=== PATIENT | female | born 1960 | race Caucasian/White ===

== ENCOUNTER 2016-12-28 11:33 | Observation (INO) | payer OTHER ==
[~2016-12-28] VITALS: Ht 172.7 cm; Wt 65.0 kg
[~2016-12-28 11:33] MED LIST: CIPR-9 PO; METH5TAB4 PO; METR-1 PO
[2016-12-28 11:37] VITALS: BP 142/93; PULSE 124; RESP 24; TEMP 98; O2SAT 99
--- NOTE | 2016-12-28 11:38 | PD ---
Physical Exam Date Seen by Provider: Dec 28, 2016 Time Seen by Provider: 11:37 Narrative 56 yo male here for irregular heart beat. Recent diagnosis of Graves disease. Has had it since and taking beta gabriella but since yesterday feeling that is irregular. Compliant. No other medical issues. No pain. Vitals are stable in triage. Awaiting bed placement. [facility] Medical Record Reviewed: Yes Supervised Visit with KELTON: Zach Clark Dec 28, 2016 11:38
--- NOTE | 2016-12-28 11:44 | PD ---
HPI . heart palpitations for 2 mts, worse now Chief Complaint: Cardiac Complaint Time Seen by Provider: 11:44 Travel History International Travel<30 days: No Contact w/Intl Traveler<30days: No Traveled to known affect area: No History of Present Illness HPI 56-year-old female with history of Graves' disease that had been controlled for 6 years and being followed by her primary care provider Dr. Vincent and tree driller Dr. Neal here with complaints of rapid heart rate. Patient says that she has been having a rapid heart rate intermittently for the past 2 months, and has had medication adjustments with her methimazole and metoprolol. She says despite taking her medications she continues to have an erratic and rapid heart rate. She was told by her tree driller, to the emergency department for evaluation of possible atrial fibrillation. Patient admits to some chest pressure and some shortness of breath. She denies any nausea, vomiting or diaphoresis. She has no other complaints. PFSH Past Medical History Autoimmune Disease: Yes (GRAVES DISEASE) Cancer: No Cardiovascular Problems: Yes (IRREGULAR HEARTBEAT) Diminished Hearing: No Diverticulitis: Yes Gastrointestinal Disorders: Yes (Diverticulosis, Diverticulitis) GERD: No Genitourinary: No Hiatal Hernia: No Musculoskeletal: No Neurologic: No Psychiatric: No Reproductive: No Respiratory: No Immunizations Current: No Thyroid Disease: Yes Ulcer: No Menopausal: Yes : 4 Para: 4 Miscarriage: 0 : 0 Social History Alcohol Use: No Tobacco Use: No Substance Use: No Allergies-Medications (Allergen,Severity, Reaction): Coded Allergies: No Known Allergies (Verified , 10/01/15) Reported Meds & Prescriptions Reported Meds & Active Scripts Active Reported Metoprolol Tartrate 25 Mg Tab 25 Mg PO BID Methimazole 5 Mg Tab 15 Mg PO DAILY Review of Systems General / Constitutional: No: Fever Eyes: No: Visual changes HENT: No: Headaches Cardiovascular: Positive: Palpitations, Irregular Rhythm, No: Chest Pain or Discomfort Respiratory: Positive: Shortness of Breath (intermittent) Gastrointestinal: No: Abdominal Pain Genitourinary: No: Dysuria Musculoskeletal: No: Pain Skin: No Rash Neurologic: No: Weakness Psychiatric: No: Depression Endocrine: No: Polydipsia Hematologic/Lymphatic: No: Easy Bruising Physical Exam Narrative GENERAL: AAO x 3, no acute distress, Well-nourished, well-developed patient. SKIN: Warm and dry. No visible rashes or bruising. HEAD: Normocephalic and atraumatic. EYES: No scleral icterus. No injection or drainage. EOM intact, PERRLA ENT: No nasal drainage noted. Mucous membranes pink. Airway patent. NECK: Supple, trachea midline. No JVD. CARDIOVASCULAR: Irregularly irregular on exam, no murmur, rubs or gallop RESPIRATORY: Breath sounds equal bilaterally. No accessory muscle use. No rhonchi or rales. GASTROINTESTINAL: Abdomen soft, non-tender, nondistended. No rebound or guarding EXTREMITIES: No cyanosis or edema. BACK: No obvious deformity. NEURO: CN II-12 intact, real estate processor strength normal b/l, UE and LE 5/5, no focal deficits PSYCH: AAO x 3, normal affect. Data Data Last Documented VS Vital Signs Date Time Temp Pulse Resp B/P Pulse Ox O2 Delivery O2 Flow Rate FiO2 12/28/16 14:53 81 118/66 97 Room Air 12/28/16 14:05 24 12/28/16 11:37 98.0 Orders Electrocardiogram (12/28/16 11:46) Basic Metabolic Panel (Bmp) (12/28/16 11:46) Complete Blood Count With Diff (12/28/16 11:46) Chest, Single Ap (12/28/16 11:46) Ecg Monitoring (12/28/16 11:46) Bilateral Bp Monitoring (12/28/16 11:46) Iv Access Insert/Monitor (12/28/16 11:46) Oximetry (12/28/16 11:46) Thyroid Stimulating Hormone (12/28/16 11:46) Free Thyroxine (T4) (12/28/16 11:46) B-Type Natriuretic Peptide (12/28/16 11:49) Ckmb (Isoenzyme) Profile (12/28/16 11:49) Magnesium (Mg) (12/28/16 11:49) Prothrombin Time / Inr (Pt) (12/28/16 11:49) Act Partial Throm Time (Ptt) (12/28/16 11:49) Troponin I (12/28/16 11:49) Diltiazem Inj (Cardizem Inj) (12/28/16 14:00) Labs Laboratory Tests Test 12/28/16 12:00 White Blood Count 5.5 TH/MM3 Red Blood Count 4.27 MIL/MM3 Hemoglobin 12.3 GM/DL Hematocrit 35.9 % Mean Corpuscular Volume 84.2 FL Mean Corpuscular Hemoglobin 28.8 PG Mean Corpuscular Hemoglobin 34.2 % Concent Red Cell Distribution Width 11.9 % Platelet Count 262 TH/MM3 Mean Platelet Volume 7.4 FL Neutrophils (%) (Auto) 47.9 % Lymphocytes (%) (Auto) 39.5 % Monocytes (%) (Auto) 9.5 % Eosinophils (%) (Auto) 2.1 % Basophils (%) (Auto) 1.0 % Neutrophils # (Auto) 2.6 TH/MM3 Lymphocytes # (Auto) 2.2 TH/MM3 Monocytes # (Auto) 0.5 TH/MM3 Eosinophils # (Auto) 0.1 TH/MM3 Basophils # (Auto) 0.1 TH/MM3 CBC Comment DIFF FINAL Differential Comment Prothrombin Time 10.2 SEC Prothromb Time International 0.9 RATIO Ratio Activated Partial 26.6 SEC Thromboplast Time Sodium Level 142 MEQ/L Potassium Level 3.4 MEQ/L Chloride Level 108 MEQ/L Carbon Dioxide Level 25.5 MEQ/L Anion Gap 9 MEQ/L Blood Urea Nitrogen 14 MG/DL Creatinine 0.60 MG/DL Estimat Glomerular Filtration 104 ML/MIN Rate Random Glucose 129 MG/DL Calcium Level 8.6 MG/DL Magnesium Level 2.0 MG/DL Total Creatine Kinase 78 U/L Troponin I LESS THAN 0.02 NG/ML B-Type Natriuretic Peptide 180 PG/ML Free Thyroxine 2.10 NG/DL Thyroid Stimulating Hormone LESS THAN 3rd Gen 0.005 uIU/ML MDM Medical Decision Making Medical Screen Exam Complete: Yes Emergency Medical Condition: Yes Medical Record Reviewed: Yes Differential Diagnosis newly dx A. fib, hyperthyroidism, Narrative Course 56-year-old female here with complaints of rapid heart rate and shortness of breath. EKG done and it shows new onset A. fib. IV access obtained. Patient placed on continuous cardiac monitoring and pulse oximetry. Labs and imaging have been ordered. Patient given Cardizem here in the ED. Labs have been reviewed and appreciated. Patient still hyperthyroid. BNP slightly elevated at 180, likely related to new onset A. fib. CXR normal. Last Impressions Chest X-Ray 12/28/16 1146 Signed Impressions: Service Date/Time: Wednesday, December 28, 2016 12:01 - CONCLUSION: No acute disease. Casey Jarvis MD Laboratory Tests Test 12/28/16 12:00 White Blood Count 5.5 TH/MM3 Red Blood Count 4.27 MIL/MM3 Hemoglobin 12.3 GM/DL Hematocrit 35.9 % Mean Corpuscular Volume 84.2 FL Mean Corpuscular Hemoglobin 28.8 PG Mean Corpuscular Hemoglobin 34.2 % Concent Red Cell Distribution Width 11.9 % Platelet Count 262 TH/MM3 Mean Platelet Volume 7.4 FL Neutrophils (%) (Auto) 47.9 % Lymphocytes (%) (Auto) 39.5 % Monocytes (%) (Auto) 9.5 % Eosinophils (%) (Auto) 2.1 % Basophils (%) (Auto) 1.0 % Neutrophils # (Auto) 2.6 TH/MM3 Lymphocytes # (Auto) 2.2 TH/MM3 Monocytes # (Auto) 0.5 TH/MM3 Eosinophils # (Auto) 0.1 TH/MM3 Basophils # (Auto) 0.1 TH/MM3 CBC Comment DIFF FINAL Differential Comment Prothrombin Time 10.2 SEC Prothromb Time International 0.9 RATIO Ratio Activated Partial 26.6 SEC Thromboplast Time Sodium Level 142 MEQ/L Potassium Level 3.4 MEQ/L Chloride Level 108 MEQ/L Carbon Dioxide Level 25.5 MEQ/L Anion Gap 9 MEQ/L Blood Urea Nitrogen 14 MG/DL Creatinine 0.60 MG/DL Estimat Glomerular Filtration 104 ML/MIN Rate Random Glucose 129 MG/DL Calcium Level 8.6 MG/DL Magnesium Level 2.0 MG/DL Total Creatine Kinase 78 U/L Troponin I LESS THAN 0.02 NG/ML B-Type Natriuretic Peptide 180 PG/ML Free Thyroxine 2.10 NG/DL Thyroid Stimulating Hormone LESS THAN 3rd Gen 0.005 uIU/ML I discussed all of the findings with the patient. I explained her that she has new onset A. fib. Her rate is slightly elevated and she will need to be admitted for further management and recommendations. Patient was in agreement with recommendations and treatment plan. 1402: I requested a call back from Dr. Saucedo 1508: Discussed with Dr. Saucedo. Patient admitted and he will resume care of this patient. Diagnosis Primary Impression: New onset a-fib Additional Impression: Hyperthyroidism Admitting Information Admitting Physician Requests: Admit Condition: Stable Tita Marshall Dec 28, 2016 11:44
[2016-12-28] MEDS ORDERED: METO25TA3 PO (11:47)
[2016-12-28 12:15] LABS: AUTOMATED NEUTROPHIL # 2.6 TH/MM3 (1.8-7.7); BASOPHIL # 0.1 TH/MM3 (0-0.2); EOSINOPHIL # 0.1 TH/MM3 (0-0.4); EOSINOPHIL % 2.1 % (0.0-4.0); HEMATOCRIT 35.9 % (35.0-46.0); HEMO FLAGS DIFF FINAL; LYMPH % 39.5 % (9.0-44.0); LYMPHOCYTE # 2.2 TH/MM3 (1.0-4.8); MEAN CELL VOLUME 84.2 FL (80.0-100.0); MEAN CORPUSCULAR HEMOGLOBIN 28.8 PG (27.0-34.0); MEAN CORPUSCULAR HGB CONC 34.2 % (32.0-36.0); MONO % 9.5 % (0.0-8.0); NEUT % 47.9 % (16.0-70.0); PLATELET COUNT 262 TH/MM3 (150-450); RED BLOOD COUNT 4.27 MIL/MM3 (4.00-5.30); RED CELL DISTRIBUTION WIDTH 11.9 % (11.6-17.2); WHITE BLOOD COUNT 5.5 TH/MM3 (4.0-11.0)
[2016-12-28 12:17] LABS: APTT (PATIENT) 26.6 SEC (24.3-30.1); INTERNATIONAL NORMALIZED RATIO 0.9 RATIO; PROTHROMBIN TIME - PATIENT 10.2 SEC (9.8-11.6)
--- NOTE | 2016-12-28 12:33 | RADRPT ---
EXAM DATE/TIME: 12/28/2016 12:01 [facility] COMPARISON: CT ABDOMEN & PELVIS W CONTRAST, May 16, 2016, 8:37. INDICATIONS : Patient has had chest pain and states she feels like her heart is racing MEDICAL HISTORY : Diverticulitis. SURGICAL HISTORY : None. ENCOUNTER: Initial ACUITY: 1 day PAIN SCORE: 2/10 LOCATION: Bilateral chest FINDINGS: A single view of the chest demonstrates the lungs to be symmetrically aerated without evidence of mas s, infiltrate or effusion. The cardiomediastinal contours are unremarkable. Osseous structures are intact. CONCLUSION: No acute disease. Casey Jarvis MD on December 28, 2016 at 12:31 Board Certified Radiologist. This report was verified electronically.
[2016-12-28 12:45] LABS: CREATINE KINASE 78 U/L (26-192)
[2016-12-28 13:28] LABS: ANION GAP 9 MEQ/L (5-15); BICARBONATE 25.5 MEQ/L (21.0-32.0); BLOOD UREA NITROGEN 14 MG/DL (7-18); CHLORIDE 108 MEQ/L (98-107); GLOMERULAR FILTRATION RATE 104 ML/MIN (>89); POTASSIUM 3.4 MEQ/L (3.5-5.1); SODIUM (NA) 142 MEQ/L (136-145)
[2016-12-28] MEDS ORDERED: DILTIAZEM HCL 25 MG/5 ML VIAL IV ONE (14:00)
[2016-12-28 14:05] VITALS: BP 116/74; PULSE 127; RESP 24; O2SAT 96
[2016-12-28 14:53] VITALS: BP 118/66; PULSE 81; O2SAT 97
[2016-12-28] MEDS ORDERED: SODIUM CHLOR 0.9% 1000 ML INJ 1,000 ML IV SCH (15:07)
[2016-12-28] MEDS ORDERED: SODIUM CHLORIDE 0.9% FLUSH 10 ML FLUSH IV FLUSH PRN (15:15)
[2016-12-28] MEDS ORDERED: NALOXONE HCL 0.4 MG/ML AMP IV PRN (15:15)
[2016-12-28] MEDS ORDERED: BISACODYL 10 MG SUPP RECTAL PRN (15:15)
[2016-12-28] MEDS ORDERED: DILTIAZEM HCL 60 MG TAB PO SCH (15:15)
[2016-12-28] MEDS ORDERED: ONDANSETRON HCL 4 MG/2 ML VIAL IVP PRN (15:15)
[2016-12-28] MEDS ORDERED: MAGNESIUM HYDROXIDE SUSP 30 ML CUP PO PRN (15:15)
[2016-12-28] MEDS ORDERED: SENNOSIDES 8.6 MG TAB PO PRN (15:15)
[2016-12-28] MEDS ORDERED: LACTULOSE SYRUP 20 GM/30 ML CUP PO PRN (15:15)
[2016-12-28 15:54] VITALS: BP 112/57; PULSE 85; RESP 20; O2SAT 98
[2016-12-28] MEDS: HEPARIN SODIUM - SQ 10,000 UNITS/ML VIAL SQ SCH (16:03)
--- NOTE | 2016-12-28 16:31 | HHI.HP ---
HPI Service [facility] Primary Care Physician Unknown Admission Diagnosis new onset a fib Diagnoses: Chief Complaint: irregular heartbeat, "pounding chest" Travel History International Travel<30 Days: No Contact w/Intl Traveler <30 Da: No Traveled to Known Affected Are: No History of Present Illness This a pleasant 56-year-old white female who is generally healthy, history of Graves' disease for the last 6 years and diverticulitis. Patient presented to the emergency room with complaint of palpitations. Indicates she's had palpitations on and off for the last couple months. She sees an asset management coordinator in [place], Dr. Leticia Neal and she is currently on methimazole 15 mg by mouth daily which was increased from 2.5 daily. Yesterday the palpitations were worse and she fell short of breath. Denies any chest pain , no dizziness. She is on Lopressor 25 mg orally twice a day. Indicates that today she took a 25 mg at 0500 and she repeated another dose between 9 and 10 AM in the morning. Because she did not have any improvement she decided to come to the hospital for further evaluation. Patient indicates that because of the increase in methimazole and the intermittent palpitation, her asset management coordinator is considering radioactive iodine. In the emergency room, patient was evaluated and EKG was noted with Jean-Claude monteiro. Laboratory workup was completed, TSH was 0.005, free T4 2 0.10. Troponin was negative. Mild hypokalemia, potassium 3.4. B natruretic peptide 180. Chest x-ray did not reveal any acute findings. Patient was given 10 mg of IV Cardizem and a one- time dose of 60 mg. She's now converted to sinus rhythm. Dr. south is at bedside examining patient and recommends increasing beta blockers and baby aspirin at this time. Patient is resting comfortably, she is agreeable with admission. Patient is admitted for further evaluation and treatment. Review of Systems Constitutional: DENIES: Diaphoretic episodes, Fatigue, Fever, Weight gain, Weight loss, Chills, Dizziness, Change in appetite, Night Sweats Endocrine: DENIES: Abnorml menstrual pattern, Heat/cold intolerance, Polydipsia , Polyuria, Polyphagia Eyes: DENIES: Blurred vision, Diplopia, Eye inflammation, Eye pain, Vision loss , Photosensitivity, Double Vision Ears, nose, mouth, throat: DENIES: Tinnitus, Hearing loss, Vertigo, Nasal discharge, Oral lesions, Throat pain, Hoarseness, Ear Pain, Running Nose, Epistaxis, Sinus Pain, Toothache, Odynophagia Respiratory: DENIES: Apneas, Cough, Snoring, Wheezing, Hemoptysis, Sputum production, Shortness of breath Cardiovascular: COMPLAINS OF: Palpitations, Dyspnea on Exertion, DENIES: Chest pain, Syncope, PND, Lower Extremity Edema, Orthopnea, Claudication Gastrointestinal: DENIES: Abdominal pain, Black stools, Bloody stools, Constipation, Diarrhea, Nausea, Vomiting, Difficulty Swallowing, Anorexia Genitourinary: DENIES: Abnormal vaginal bleeding, Dysmenorrhea, Dyspareunia, Sexual dysfunction, Urinary frequency, Urinary incontinence, Urgency, Hematuria , Dysuria, Nocturia, Vaginal discharge Musculoskeletal: DENIES: Joint pain, Muscle aches, Stiffness, Joint Swelling, Back pain, Neck pain Integumentary: DENIES: Abnormal pigmentation, Pruritus, Rash, Nail changes, Breast masses, Breast skin changes, Nipple discharge Hematologic/lymphatic: DENIES: Bruising, Lymphadenopathy Immunologic/allergic: DENIES: Eczema, Urticaria Neurologic: DENIES: Abnormal gait, Headache, Localized weakness, Paresthesias, Seizures, Speech Problems, Tremor, Poor Balance Psychiatric: DENIES: Anxiety, Confusion, Mood changes, Depression, Hallucinations, Agitation, Suicidal Ideation, Homicidal Ideation, Delusions Past Family Social History Past Medical History Graves disease, sees Dr. Leticia Neal. On Methimazole Diverticulitis Past Surgical History None Reported Medications Reported Meds & Active Scripts Active Reported Metoprolol Tartrate 25 Mg Tab 25 Mg PO BID Methimazole 5 Mg Tab 15 Mg PO DAILY Allergies: Coded Allergies: No Known Allergies (Verified , 10/01/15) Active Ordered Medications Inpatient Medications Bisacodyl (Dulcolax Supp) 10 mg DAILY PRN RECTAL SEVERE CONSITIPATION; Start at 15:15 Diltiazem HCl (Cardizem) 60 mg QID PO Last administered on 12/28/16 15:53; Start 12/28/16 at 15:15 Diltiazem HCl 10 mg 10 mg ONCE ONCE IV Last administered on 12/28/16 14:16; Start 12/28/16 at 14:00; Stop 12/28/16 at 14:01; Status DC Heparin Sodium (Porcine) (Heparin Inj) 5,000 units Q12H SQ Last administered on 12/28/16 16:03; Start 12/28/16 at 16:00 Lactulose (Lactulose Liq) 30 ml DAILY PRN PO SEVERE CONSITIPATION; Start at 15:15 Magnesium Hydroxide (Milk Of Magnesia Liq) 30 ml Q12H PRN PO MILD - MODERATE CONSTIPATION; Start 12/28/16 at 15:15 Naloxone HCl (Narcan Inj) 0.4 mg UNSCH PRN IV SEE LABEL COMMENTS; Start at 15:15 Ondansetron HCl (Zofran Inj) 4 mg Q6H PRN IVP NAUSEA OR VOMITING; Start at 15:15 Senna/Docusate Sodium (Yolanda-Colace) 1 tab BID PO ; Start 12/28/16 at 21:00 Sennosides (Senokot) 17.2 mg Q12H PRN PO MODERATE - SEVERE CONSTIPATION; Start 12/28/16 at 15:15 Sodium Chloride (NS 1000 ml Inj) 1,000 ml @ 100 mls/hr Q10H IV Last administered on 12/28/16 15:53; Start 12/28/16 at 15:07 Sodium Chloride (NS Flush) 2 ml BID IV FLUSH ; Start 12/28/16 at 21:00 Family History Brother has a pacemaker Social History 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 Rare alcohol use. Quit smoking in 1990. No substance abuse. Physical Exam Vital Signs Vital Signs Date Time Temp Pulse Resp B/P Pulse Ox O2 Delivery O2 Flow Rate FiO2 12/28/16 15:54 85 20 112/57 98 Room Air 12/28/16 15:16 16 97 Room Air 12/28/16 14:53 81 118/66 97 Room Air 12/28/16 14:05 127 24 116/74 96 Room Air 12/28/16 11:37 98.0 124 24 142/93 99 Room Air Physical Exam GENERAL: This is a well-nourished, well-developed patient, in no apparent distress. SKIN: No rashes, ecchymoses or lesions. Cool and dry. HEAD: Atraumatic. Normocephalic. No temporal or scalp tenderness. EYES: Pupils equal round and reactive. Extraocular motions intact. No scleral icterus. No injection or drainage. ENT: Nose without bleeding, purulent drainage or septal hematoma. Throat without erythema, tonsillar hypertrophy or exudate. Uvula midline. Airway patent. NECK: Trachea midline. No JVD or lymphadenopathy. Supple, nontender, no meningeal signs. CARDIOVASCULAR: Regular rate and rhythm without murmurs, gallops, or rubs. RESPIRATORY: Clear to auscultation. Breath sounds equal bilaterally. No wheezes , rales, or rhonchi. GASTROINTESTINAL: Abdomen soft, non-tender, nondistended. No hepato-splenomegaly , or palpable masses. No guarding. MUSCULOSKELETAL: Extremities without clubbing, cyanosis, or edema. No joint tenderness, effusion, or edema noted. No calf tenderness. Negative Homans sign bilaterally. NEUROLOGICAL: Awake and alert. Cranial nerves II through XII intact. Motor and sensory grossly within normal limits. Five out of 5 muscle strength in all muscle groups. Normal speech. Laboratory Laboratory Tests Test 12/28/16 12:00 White Blood Count 5.5 Red Blood Count 4.27 Hemoglobin 12.3 Hematocrit 35.9 Mean Corpuscular Volume 84.2 Mean Corpuscular Hemoglobin 28.8 Mean Corpuscular Hemoglobin 34.2 Concent Red Cell Distribution Width 11.9 Platelet Count 262 Mean Platelet Volume 7.4 Neutrophils (%) (Auto) 47.9 Lymphocytes (%) (Auto) 39.5 Monocytes (%) (Auto) 9.5 Eosinophils (%) (Auto) 2.1 Basophils (%) (Auto) 1.0 Neutrophils # (Auto) 2.6 Lymphocytes # (Auto) 2.2 Monocytes # (Auto) 0.5 Eosinophils # (Auto) 0.1 Basophils # (Auto) 0.1 CBC Comment DIFF FINAL Differential Comment Prothrombin Time 10.2 Prothromb Time International 0.9 Ratio Activated Partial 26.6 Thromboplast Time Sodium Level 142 Potassium Level 3.4 Chloride Level 108 Carbon Dioxide Level 25.5 Anion Gap 9 Blood Urea Nitrogen 14 Creatinine 0.60 Estimat Glomerular Filtration 104 Rate Random Glucose 129 Calcium Level 8.6 Magnesium Level 2.0 Total Creatine Kinase 78 Troponin I LESS THAN 0.02 B-Type Natriuretic Peptide 180 Free Thyroxine 2.10 Thyroid Stimulating Hormone LESS THAN 3rd Gen 0.005 Result Diagram: 8/9/17 1200 12/28/16 1200 Imaging Last Impressions Chest X-Ray 12/28/16 1146 Signed Impressions: Service Date/Time: Wednesday, December 28, 2016 12:01 - CONCLUSION: No acute disease. Casey Jarvis MD Assessment and Plan Problem List: (1) New onset a-fib (2) Hyperthyroidism Assessment and Plan Admit to Dr. Saucedo 56-year-old white female with history of hyperthyroidism. Presents emergency room with complaint of intermittent palpitations on and off for the last 2 months worsening overnight. Has had shortness of breath, no chest pain, no dizziness. Currently treated with methimazole and Lopressor 25 mg by mouth twice a day A. fib with RVR, new onset Cardiology consultation, Dr. South has evaluated. Case has been discussed with him, recommends to increase Lopressor to 50 mg by mouth twice a day and hold off on Cardizem at this time. Chads Vasc 1, recommends aspirin 81 mg by mouth daily 2-D echo has been ordered, we will follow up on results Continuous cardiac telemetry Hyperparathyroidism, Graves' disease -Continue with methimazole 50 mg by mouth daily Hypokalemia Replace potassium Home medications reviewed, initiated as indicated Heparin for DVT prophylaxis Plan of care has been discussed with the patient, attending and registered nurse. Further management of the patient will be dependent on the hospital course This patient was seen by myself and Dr. Saucedo, this H&P is written on his behalf Eboni Mcniel Dec 28, 2016 16:30
--- NOTE | 2016-12-28 16:52 | ECHRPT ---
Indication: CONCLUSIONS Normal left ventricular size and wall thickness. The left ventricular systolic function is normal wi th an estimated ejection fraction in the range of 60-65%. Left ventricular diastolic function parameters a re normal. Mild mitral valve regurgitation. There is trace tricuspid valve regurgitation. The estimated pulmonary arterial pressure is 27 mmHg. BP: / HR: 63 Rhythm: Atrial fibrillation MEASUREMENTS (Male / Female) Normal Values Technical Quality:Fair 2D ECHO LV Diastolic Diameter PLAX 3.7 cm 4.2 - 5.9 / 3.9 - 5.3 cm LV Systolic Diameter PLAX 2.7 cm IVS Diastolic Thickness 0.8 cm 0.6 - 1.0 / 0.6 - 0.9 cm LVPW Diastolic Thickness 0.8 cm 0.6 - 1.0 / 0.6 - 0.9 cm LV Relative Wall Thickness 0.4 LVOT Diameter 1.8 cm M-MODE Aortic Root Diameter MM 2.7 cm LA Systolic Diameter MM 3.1 cm LA Ao Ratio MM 1.1 AV Cusp Separation MM 1.8 cm DOPPLER AV Peak Velocity 159.0 cm/s AV Peak Gradient 10.1 mmHg LVOT Peak Velocity 158.0 cm/s LVOT Peak Gradient 10.0 mmHg AV Area Cont Eq pk 2.5 cm MR Peak Velocity 336.0 cm/s MR Peak Gradient 45.2 mmHg Mitral E Point Velocity 123.0 cm/s Mitral A Point Velocity 76.5 cm/s Mitral E to A Ratio 1.6 LV E' Lateral Velocity 13.4 cm/s Mitral E to LV E' Lateral Ratio 9.2 LV E' Septal Velocity 11.1 cm/s Mitral E to LV E' Septal Ratio 11.1 TR Peak Velocity 204.0 cm/s TR Peak Gradient 16.6 mmHg PV Peak Velocity 105.0 cm/s PV Peak Gradient 4.4 mmHg FINDINGS LEFT VENTRICLE Normal left ventricular size and wall thickness. The left ventricular systolic function is normal wi th an estimated ejection fraction in the range of 60-65%. Left ventricular diastolic function parameters a re normal. RIGHT VENTRICLE Normal right ventricular size and systolic function. LEFT ATRIUM The left atrial size is normal. RIGHT ATRIUM The right atrial size is normal. ATRIAL SEPTUM Normal atrial septal thickness without atrial level shunting by limited color doppler interrogation. AORTA The aortic root and proximal ascending aorta are normal in size on limited imaging. MITRAL VALVE Mild mitral valve regurgitation. AORTIC VALVE Trileaflet aortic valve. No aortic valve stenosis or regurgitation. TRICUSPID VALVE There is trace tricuspid valve regurgitation. The estimated pulmonary arterial pressure is 27 mmHg. PULMONARY VALVE The pulmonary valve is not well visualized. VESSELS The inferior vena cava is normal in size. PERICARDIUM No pericardial effusion. Lito South MD, FACC (Electronically Signed) Final Date:28 December 2016 16:50
[2016-12-28] MEDS ORDERED: POTASSIUM CHLORIDE 25 MEQ EFFERVESCENT TAB PO ONE (17:00)
--- NOTE | 2016-12-28 17:20 | MB ---
cc: AARON CARTER DATE OF CONSULTATION 12/28/2016 HISTORY An 56-year-old white female with a history of Graves disease presented with palpitations. She has not had any chest pain or shortness of breath. She has had intermittent episodes of palpitations for the last 6 months. Her current symptoms started last night. She is still hyperthyroid. PAST MEDICAL HISTORY Positive for: 1. Graves disease. 2. Diverticulitis. No history of hypertension, dyslipidemia, diabetes mellitus, coronary disease or CVA. MEDICATIONS 1. Metoprolol tartrate 25 milligrams twice a day. 2. Methimazole 5 mg a day. ALLERGIES None. SOCIAL HISTORY The patient does not smoke. She does not drink alcohol. FAMILY HISTORY Negative for heart disease. REVIEW OF SYSTEMS Otherwise negative. PHYSICAL EXAMINATION VITAL SIGNS: Blood pressure 112/57, pulse 85 and regular. HEENT: Negative. 2+ carotid upstrokes. No bruits. LUNGS: Clear. CARDIOVASCULAR: Regular with no murmur, gallop or rub. ABDOMEN: Soft. No bruits. EXTREMITIES: Without edema. 2+ distal pulses. NEUROLOGIC: Grossly nonfocal. EKG was reviewed and showed atrial fibrillation with rapid ventricular response. No acute changes. LABORATORY DATA Hemoglobin 12.3. Potassium 3.4, creatinine 0.6. Troponin less than 0.02. TSH less than 0.005, free T4 2.1. BNP 180. CK 78. Magnesium 2.0 DIAGNOSES 1. Paroxysmal atrial fibrillation with rapid ventricle response. 2. Graves disease with hyperthyroidism. DISPOSITION Ms. Harrington spontaneously converted to sinus rhythm. We will increase her metoprolol to 50 mg twice a day. We will discontinue her IV diltiazem. Her [id number] score is 1. Her risk of full anticoagulation is higher than its benefit at this time. We will initiate therapy with full dose aspirin. I will follow her for cardiology during her hospitalization. I will also see her back for followup in our office after discharge. MD ANA Blandon/SOUMYA /4:33 PM /4:52 PM SHANNON
[2016-12-28 18:13] VITALS: BP 114/56; PULSE 90; RESP 16; O2SAT 97
[2016-12-28 20:09] VITALS: BP 97/55; PULSE 77; RESP 16; TEMP 99; O2SAT 98
[2016-12-28] MEDS ORDERED: METOPROLOL TARTRATE 25 MG TAB PO SCH (21:00)
--- NOTE | 2016-12-28 21:05 | RADRPT ---
EXAM DATE/TIME: 12/28/2016 20:38 [place] COMPARISON: No previous studies available for comparison. INDICATIONS : Abnormal labs. MEDICAL HISTORY : Graves disease. Irregular heartbeat. Diverticulitis. SURGICAL HISTORY : None. ENCOUNTER: Initial ACUITY: >1 year PAIN SCORE: 0/10 LOCATION: Bilateral neck MEASUREMENTS: RIGHT LOBE: 5.1 x 1.8 x 2.3 cm LEFT LOBE: 4.2 x 1.8 x 2.1 cm FINDINGS: RIGHT LOBE: Homogeneous echotexture without nodules or cysts. Vascularity is within normal limits. LEFT LOBE: There is a solid circumscribed 1 cm nodule upper pole left lobe thyroid. ISTHMUS: Normal in size without focal abnormality. CONCLUSION: 1. Hypervascular, heterogeneous thyroid gland. Small 1 cm nodule left lobe. Avery Gastelum MD on December 28, 2016 at 21:01 Board Certified Radiologist. This report was verified electronically.
[2016-12-28] MEDS: SODIUM CHLORIDE 0.9% FLUSH 10 ML FLUSH IV FLUSH SCH (21:20)
[2016-12-28] MEDS: DOCUSATE SODIUM 50 MG/SENNA 8.6 MG TAB PO SCH (21:21)
[2016-12-28] MEDS: METOPROLOL TARTRATE 25 MG TAB PO SCH (21:21)
[2016-12-29] VITALS (7 sets, daily range): BP systolic 92–119; BP diastolic 45–57; PULSE 76–86; RESP 16–18; TEMP 97.8–98.7; O2SAT 94–99
[2016-12-29 01:06] LABS: CREATINE KINASE 52 U/L (26-192)
[2016-12-29] MEDS: HEPARIN SODIUM - SQ 10,000 UNITS/ML VIAL SQ SCH (04:09)
[2016-12-29] MEDS: METOPROLOL TARTRATE 25 MG TAB PO SCH (09:00)
[2016-12-29] MEDS ORDERED: ASPIRIN EC 81 MG TABEC PO SCH (09:00)
[2016-12-29] MEDS ORDERED: ASPIRIN EC 325 MG TABEC PO SCH (09:00)
[2016-12-29] MEDS ORDERED: METHIMAZOLE 5 MG TAB PO SCH (09:00)
[2016-12-29] MEDS: SODIUM CHLORIDE 0.9% FLUSH 10 ML FLUSH IV FLUSH SCH (09:06)
[2016-12-29] MEDS: DOCUSATE SODIUM 50 MG/SENNA 8.6 MG TAB PO SCH (09:06)
--- NOTE | 2016-12-29 10:41 | HHI.PR ---
Subjective Remarks Sitting up in bed this morning Alert oriented cooperative Feels good having no further symptoms of palpitations, no chest pain Ordered heart healthy diet this morning (Katiana Chavez) Objective Objective Results - Vital Signs Date Time Temp Pulse Resp B/P Pulse Ox O2 Delivery O2 Flow Rate FiO2 12/29/16 08:06 98.0 77 18 101/50 97 12/29/16 04:11 98.0 76 17 119/56 94 12/29/16 02:26 76 12/29/16 00:32 98.2 76 16 92/45 95 12/28/16 20:09 99.0 77 16 97/55 98 12/28/16 18:13 90 16 114/56 97 Room Air 12/28/16 18:11 17 99 Room Air 12/28/16 15:54 85 20 112/57 98 Room Air 12/28/16 15:16 16 97 Room Air 12/28/16 14:53 81 118/66 97 Room Air 12/28/16 14:05 127 24 116/74 96 Room Air 12/28/16 11:37 98.0 124 24 142/93 99 Room Air (Katiana Chavez) Result Diagram: 12/28/16 1200 12/28/16 1200 ROS General: Weakness (resolved), Other (10 point ROS done positives noted) Cardiac: Palpitations (resolved), Other (maintain telemetry until discharge) ( Katiana Chavez) Physical Exam Physical Exam PHYSICAL EXAMINATION GENERAL: This is a well-developed, female who appears to be in no acute distress. She is alert and awake, HEAD: Normocephalic, atraumatic OROPHARYNGEAL: Oropharynx clear NECK: Supple. Trachea midline without deviation. CARDIAC: Regular rhythm, regular rate, S1 and S2 are heard. LUNGS: Clear to auscultation bilaterally. ABDOMEN: Soft, nontender, EXTREMITIES: no edema. NEUROLOGICAL: Patient mood and affect appropriate SKIN:Warm and moist (Katiana Chavez) A/P Assessment and Plan Vital signs reviewed, afebrile telemetry shows sinus rhythm in the 70s Labs reviewed, negative troponins noted small 1 cm thyroid nodule, known Graves ' disease Added heart healthy diet this morning Monitor bowel regimen 1. Paroxysmal atrial fibrillation with rapid ventricle response. Has now converted back to sinus rhythm, appreciate cardiac consult and expert opinion Her Lopressor has been increased to 50 mg twice a day, exam has been discontinued, full dose aspirin Will follow in the office as outpatient when she is medically stable for discharge 2. Graves disease with hyperthyroidism. Probable calls for her atrial fibrillation, will follow up with medical management. 3. Small thyroid nodule, seen on initial testing, plans to follow-up with her fence maker as an outpatient #4. Hypokalemia, mild, treated with by mouth potassium Discussed plan of care with patient, she is very hopeful for discharge planning today Discussed with nurse, diet ordered heart healthy Discussed with Dr. Saucedo, seen on his behalf (Katiana Chavez) Assessment and Plan seen, examined by myself, Dr Saucedo, today Discussed with patient Discharge home today Daily baby aspirin Follow-up with her own fence maker for addressing her newly diagnosed pulmonary nodule Lopressor as detailed above Discussed with mid level provider The exam, history, and the medical decision-making described in the above note were completed with the assistance of the mid-level provider. I reviewed the findings presented. I attest that I had a [id number] encounter with the patient on the same day, and personally performed and documented my assessment and findings in the medical record. 40 minutes (Natalia Saucedo MD) Katiana Chavez Dec 29, 2016 10:40 Natalia Saucedo MD Dec 29, 2016 20:15
--- NOTE | 2016-12-29 11:50 | EKG ---
Date Performed: 12/28/2016 Time Performed: 11:50:04 PTAGE: 56 years EKG: ATRIAL FIBRILLATION WITH RAPID VENTRICULAR RESPONSE ABNORMAL RHYTHM ECG PREVIOUS TRACING : 12/23/1999 16.24 Atrial fibrillation is new from the prior tracing. DOCTOR: Juan Saul Interpretating Date/Time 12/29/2016 11:49:26
--- NOTE | 2016-12-29 13:54 | PD.CARD.PN ---
Subjective Subjective Remarks No CP or SOB, feels better, stays in SR Objective Medications Current Medications Medications (Trade) Dose Ordered Sig/Peter Route Start Time Stop Time Status Last Admin (NS Flush) 2 ml UNSCH PRN IV FLUSH 12/28/16 15:15 (NS Flush) 2 ml BID IV FLUSH 12/28/16 21:00 12/29/16 09:06 (Zofran Inj) 4 mg Q6H PRN IVP 12/28/16 15:15 (Heparin Inj) 5,000 units Q12H SQ 12/28/16 16:00 12/29/16 04:09 (Narcan Inj) 0.4 mg UNSCH PRN IV 12/28/16 15:15 (Yolanda-Colace) 1 tab BID PO 12/28/16 21:00 12/29/16 09:06 (Milk Of Magnesia Liq) 30 ml Q12H PRN PO 12/28/16 15:15 (Senokot) 17.2 mg Q12H PRN PO 12/28/16 15:15 (Dulcolax Supp) 10 mg DAILY PRN RECTAL 12/28/16 15:15 (Lactulose Liq) 30 ml DAILY PRN PO 12/28/16 15:15 (Tapazole) 15 mg DAILY PO 12/29/16 09:00 12/29/16 09:07 (Lopressor) 50 mg BID PO 12/28/16 21:00 12/28/16 21:21 (Ecotrin Ec) 325 mg DAILY PO 12/29/16 09:00 12/29/16 09:06 Vital Signs / I&O Vital Signs Date Time Temp Pulse Resp B/P Pulse Ox O2 Delivery O2 Flow Rate FiO2 12/29/16 11:52 97.8 84 18 104/57 99 12/29/16 09:00 78 12/29/16 08:06 98.0 77 18 101/50 97 12/29/16 04:11 98.0 76 17 119/56 94 12/29/16 02:26 76 12/29/16 00:32 98.2 76 16 92/45 95 12/28/16 20:09 99.0 77 16 97/55 98 12/28/16 18:13 90 16 114/56 97 Room Air 12/28/16 18:11 17 99 Room Air 12/28/16 15:54 85 20 112/57 98 Room Air 12/28/16 15:16 16 97 Room Air 12/28/16 14:53 81 118/66 97 Room Air 12/28/16 14:05 127 24 116/74 96 Room Air Physical Exam GENERAL: In NAD SKIN: Warm and dry. HEAD: Normocephalic. EYES: No scleral icterus. No injection or drainage. NECK: Supple, trachea midline. No JVD or lymphadenopathy. CARDIOVASCULAR: Regular rate and rhythm without murmurs, gallops, or rubs. RESPIRATORY: Breath sounds equal bilaterally. No accessory muscle use. GASTROINTESTINAL: Abdomen soft, non-tender, nondistended. MUSCULOSKELETAL: No cyanosis, or edema. Laboratory Laboratory Tests Test 12/28/16 23:44 Total Creatine Kinase 52 U/L Troponin I LESS THAN 0.02 NG/ML Imaging Last Impressions Chest X-Ray 12/28/16 1146 Signed Impressions: Service Date/Time: Wednesday, December 28, 2016 12:01 - CONCLUSION: No acute disease. Casey Jarvis MD Thyroid Ultrasound 12/28/16 0000 Signed Impressions: Service Date/Time: Wednesday, December 28, 2016 20:38 - CONCLUSION: 1. Hypervascular, heterogeneous thyroid gland. Small 1 cm nodule left lobe. Avery Gastelum MD Assessment and Plan Problem List: (1) New onset a-fib (2) Hyperthyroidism (3) Graves disease Assessment and Plan Continue beta gabriella. Stays in SR. Increase activity. F/u with her clinical pharmacy coordinator to manage her hyperthyroidism. Anticipate discharge home. Will schedule card f/u. Lito South MD Dec 29, 2016 13:54
[2016-12-29] MEDS ORDERED: ASPI81TA81 PO (15:15)
[2016-12-29] MEDS ORDERED: METO25TA3 PO (15:15)
--- NOTE | 2016-12-29 17:59 | HHI.DS ---
Discharge Summary Admission Date Dec 28, 2016 at 15:09 Discharge Date: Dec 29, 2016 Admitting Diagnosis new onset a fib (1) New onset a-fib Diagnosis: Principal (2) Hyperthyroidism Diagnosis: Secondary Brief History This was a pleasant 56-year-old white female who is generally healthy, history of Graves' disease for the last 6 years and diverticulitis. Patient presented to the emergency room with complaint of palpitations. Indicated she's had palpitations on and off for the last couple months. She saw an chief legal officer in [place], Dr. Leticia Neal and she was currently on methimazole 15 mg by mouth daily which was increased from 2.5 daily. Yesterday the palpitations were worse and she felt short of breath. Denied any chest pain, no dizziness. She was on Lopressor 25 mg orally twice a day. Indicated that today she took a 25 mg at 0500 and she repeated another dose between 9 and 10 AM in the morning. Because she did not have any improvement she decided to come to the hospital for further evaluation. Patient indicated that because of the increase in methimazole and the intermittent palpitation, her chief legal officer is considering radioactive iodine. In the emergency room, patient was evaluated and EKG was noted with Jean-Claude monteiro. Laboratory workup was completed, TSH was 0.005, free T4 2 0.10. Troponin was negative. Mild hypokalemia, potassium 3.4. B natruretic peptide 180. Chest x-ray did not reveal any acute findings. Patient was given 10 mg of IV Cardizem and a one-time dose of 60 mg. She's now converted to sinus rhythm. Dr. gandara is at bedside examining patient and recommends increasing beta blockers and baby aspirin at this time. CBC/BMP: 12/28/16 1200 12/28/16 1200 Significant Findings Laboratory Tests Test 12/28/16 12/28/16 12:00 23:44 Monocytes (%) (Auto) 9.5 % (0.0-8.0) Potassium Level 3.4 MEQ/L (3.5-5.1) Chloride Level 108 MEQ/L (98-107) Random Glucose 129 MG/DL (74-106) Troponin I LESS THAN 0.02 LESS THAN 0.02 NG/ML NG/ML (0.02-0.05) (0.02-0.05) B-Type Natriuretic Peptide 180 PG/ML (0-100) Free Thyroxine 2.10 NG/DL (0.76-1.46) Thyroid Stimulating Hormone LESS THAN 3rd Gen 0.005 uIU/ML (0.358-3.740) Imaging Last Impressions Chest X-Ray 12/28/16 1146 Signed Impressions: Service Date/Time: Wednesday, December 28, 2016 12:01 - CONCLUSION: No acute disease. Casey Jarvis MD Thyroid Ultrasound 12/28/16 0000 Signed Impressions: Service Date/Time: Wednesday, December 28, 2016 20:38 - CONCLUSION: 1. Hypervascular, heterogeneous thyroid gland. Small 1 cm nodule left lobe. Avery Gastelum MD Pt Condition on Discharge: Stable Discharge Disposition: Discharge Home Discharge Instructions DIET: Follow Instructions for: Heart Healthy Diet Activities you can perform: Weight Bearing as Karina Follow up Referrals: Endocrinology - 2 Weeks New Medications: Aspirin (Aspir-81) 81 Mg Tabdr 1 TAB PO DAILY Blood Clot Prevention #30 Ref 11 EA Metoprolol Tartrate (Metoprolol Tartrate) 25 Mg Tab 50 MG PO BID tachycardia #60 TAB Continued Medications: Methimazole (Methimazole) 5 Mg Tab 15 MG PO DAILY Thyroid #30 Ref 0 TAB Discontinued Medications: Metoprolol Tartrate (Metoprolol Tartrate) 25 Mg Tab 25 MG PO BID Ref 0 TAB Katiana Chavez Dec 29, 2016 17:59
== END 2016-12-29 16:09 | disposition home or self-care (01) ==
LOC: NEPE 11:33 → NEDA 15:09 → UNDODISOB 16:51 → NEPGCP 19:23
PROVIDERS: ADMIT Specialist; ATTEND Specialist
DX: I48.0 Paroxysmal atrial fibrillation (principal); E05.00 Thyrotoxicosis with diffuse goiter without thyrotoxic crisis or storm; E87.6 Hypokalemia; Z79.899 Other long term (current) drug therapy; Z87.891 Personal history of nicotine dependence
CPT/HCPCS: 71010; 76536; 80048; 82550; 83735; 83880; 84439; 84443; 84484; 85025; 85610; 85730; 93005; 93306; 96365; 96372; 99285; G0378; J1644; J7030